=== PATIENT | female | born 2000 | race Caucasian/White ===

== ENCOUNTER 2021-09-11 17:37 | Emergency (ER) | payer OTHER ==
[2021-09-11 19:16] VITALS: BP 130/68
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
[2021-09-11 20:50] VITALS: PULSE 100; RESP 19
== END 2021-09-11 20:50 | disposition home or self-care (01) ==
LOC: EC 17:37
DX: S46.811A Strain of other muscles, fascia and tendons at shoulder and upper arm level, right arm, initial encounter (principal); F17.290 Nicotine dependence, other tobacco product, uncomplicated; F12.90 Cannabis use, unspecified, uncomplicated; V49.50XA Passenger injured in collision with unspecified motor vehicles in traffic accident, initial encounter
CPT/HCPCS: 99283